=== PATIENT | male | born 1985 | race Caucasian/White ===

== ENCOUNTER → 2018-12-11 | Emergency (ER) | payer BC, OTHER ==
[~2018-12-11] MED LIST: Aspirin Chewable 81 MG TAB ONE
[2018-12-11 15:45] LABS: #Monocytes 0.5 thou/uL (0.11-0.59); #Neutrophils 5.4 thou/uL (1.40-6.50); %Basophils 0.8 % (0.0-1.0); %Eosinophils 0.4 % (0.0-10.0); %Lymphocytes 13.9 % (21.0-51.0); %Monocytes 7.7 % (0.0-10.0); %Neutrophils 77.2 % (42.0-75.0); Hemoglobin 13.6 g/dL (14.0-18.0); Manual Diff?? NO; Mean Corpuscular Hemoglobin 29.6 pg (27.0-31.0); Mean Corpuscular Volume 89.7 fL (78.0-98.0); Platelet Count 204 thou/uL (130-400); RBC Distribution Width 11.3 % (11.5-14.5); Red Blood Cell (RBC) Count 4.62 mill/uL (4.70-6.10)
[2018-12-11 15:46] LABS: #Basophils 0.1 thou/uL (0.0-0.2); MDiff Complete? YES
[2018-12-11 15:57] LABS: ALT (SGPT) 18 U/L (8-55); AST (SGOT) 25 U/L (5-34); Albumin 4.4 g/dL (3.5-5.0); Alkaline Phosphatase 35 U/L (40-150); Anion Gap 15 mmol/L (10-20); BUN (Urea Nitrogen) 14 mg/dL (8.9-20.6); Bilirubin, Total 0.5 mg/dL (0.2-1.2); Calc. Creatinine Clearance 0 mL/min (70-130); Calcium 9.6 mg/dL (7.8-10.44); Carbon Dioxide 24 mmol/L (22-29); Chloride 103 mmol/L (98-107); Estimated GFR-MDRD 69; Globulin 2.7 g/dL (2.4-3.5); Glucose 123 mg/dL (70-105); Protein, Total 7.1 g/dL (6.0-8.3); Sodium 138 mmol/L (136-145)
[2018-12-11 17:49] LABS: Troponin I Less than 0.010 ng/mL (< 0.028)
--- NOTE | 2018-12-11 21:51 | RAD ---
PORTABLE CHEST 12/11/18 An AP portable film at 1616 shows a normal sized heart and clear lungs. No infiltrate or effusion was seen. There is no vascular congestion or edema. Hazy area to the right of the lower trachea was felt to be due to a combination of the costochondral junction of the first rib and overlying lung marking s rather than a minimal infiltrate. IMPRESSION: No acute finding. POS: HOME
== END ==
LOC: BURERS 15:00
DX: R07.89 Other chest pain (principal); F41.9 Anxiety disorder, unspecified
CPT/HCPCS: 36415; 71045; 80053; 84484; 85025; 93005; 94760